=== PATIENT | female | born 1960 | race Two or more races ===

== ENCOUNTER → 2024-05-07 | Outpatient (CLI) | payer BC, SELFPAY ==
--- NOTE | 2024-05-07 11:00 | XR_ITS ---
Examination: CT abdomen with intravenous contrast CT pelvis with intravenous contrast 2-D coronal reconstructions 2-D sagittal reconstructions Date and time of exam:May 07, 2024 1146 hours INDICATIONS: Right upper abdominal pain left upper abdominal pain and constipation beginning 2 years ago. CTDI: vol (mGy) 16.8 DLP: (mGycm) 567 Technique: Multiple axial sections of the abdomen and pelvis have been obtained. 64 slice high-resolution scanner used. 3 mm axial sections have been obtained, post intravenous injection 60 cc [id number] 2-D sagittal, coronal reconstructions obtained. Low dose protocols were performed. One or more of the following dose reduction techniques were used; automated exposure control, adjustment of the mA and/or KV according to patient size, use of iterative reconstruction technique. Findings: Diffuse fatty infiltration throughout the liver, 16 mm right lobe liver cyst No gallstones Spleen not enlarged No pancreatic mass Mildly fluid distended small bowel loops in the upper abdomen Aorta normal size No bowel obstruction Normal appendix No diverticulitis Retroverted uterus No pelvic mass Minimal thickening urinary bladder wall up to 3 mm Moderate disc narrowing L2-L3 IMPRESSION: Small bowel ileus versus enteritis, clinical correlation advised
== END | disposition home or self-care (01) ==
PROVIDERS: Referring Provider Specialist; Visit Provider Specialist
DX: R10.0 Acute abdomen (principal)
CPT/HCPCS: 74177; A4649; Q9963; Q9967